=== PATIENT | female | born 1990 ===

== ENCOUNTER 2018-03-10 15:46 | Emergency (ER) | payer OTHER ==
[2018-03-10 16:20] VITALS: BMI 24.8
[2018-03-10 16:21] VITALS: BP 119/74; PULSE 87; RESP 18; TEMP 98.9; O2SAT 98
--- NOTE | 2018-03-10 17:54 | ED PDOC ---
Arrival/HPI - General Chief Complaint: Female Genitourinary Time Seen by Provider: 03/10/18 16:47 Historian: Patient - History of Present Illness Narrative History of Present Illness (Text): 03/10/18 17:52 A 28 year old female, with no significant past medical history, presents to the emergency department with complaint of intermittent pelvic pain. Patient notes that she had an IUD placed 6 months ago. She reports that for the past 2 months she has not been able to see the IUD string. [facility] and [facility] recommended she she have an outpatient US. The patient denies fevers, chills, headache, dizziness, chest pain, shortness of breath, dyspnea on exertion, cough, abdominal pain, nausea, vomiting, diarrhea, back pain, neck pain, urinary/bowel changes, or any other complaint. Time/Duration: Other (2 months) Symptom Onset: Gradual Symptom Course: Unchanged Activities at Onset: Rest, Light Context: Home Past Medical History - Provider Review Nursing Documentation Reviewed: Yes Family/Social History - Physician Review Nursing Documentation Reviewed: Yes Family/Social History: No Known Family HX Allergies/Home Meds Allergies/Adverse Reactions: Allergies No Known Allergies Allergy (Verified 03/10/18 16:20) Review of Systems - Physician Review All systems were reviewed & negative as marked: Yes - Review of Systems Constitutional: absent: Fevers Respiratory: absent: SOB, Cough Cardiovascular: absent: Chest Pain, MARIN Gastrointestinal: absent: Abdominal Pain, Stool Changes, Diarrhea, Nausea, Vomiting Genitourinary Female: Other (intermittent pelvic pain.). absent: Urine Output Changes Musculoskeletal: absent: Back Pain, Neck Pain Neurological: absent: Headache, Dizziness Physical Exam - Physical Exam Narrative Physical Exam (Text): 03/10/18 17:45: Patient currently refusing physical and pelvic exam. Vital Signs Reviewed: Yes Vital Signs Temp Pulse Resp BP Pulse Ox 03/10/18 16:20 98.9 F 87 18 119/74 98 Temperature: Afebrile Blood Pressure: Normal Pulse: Regular Respiratory Rate: Normal Appearance: Positive for: Well-Appearing, Non-Toxic, Comfortable Pain Distress: None Mental Status: Positive for: Alert and Oriented X 3 Medical Decision Making ED Course and Treatment: Impression: A 28 year old female presents to the emergency department with a complaint of intermittent pelvic pain. Plan: -- [place] [facility] [place] Progress Notes: 03/10/18 17:45: Patient refusing physical/ pelvic exam, HCG, Transvaginal Ultrasound stating she does not want to wait for results and will get tests done as an outpatient. Patient will leave against medical advice. Leaving Against Medical Advice (AMA): The patient is choosing to leave against medical advice. I have personally explained to the patient that choosing to do so may result in permanent bodily harm, diability, or . I have discussed at great length that without further evaluation and monitoring there may be unforeseen circumstances and/or deterioration causing permanent bodily harm or as a result of their choice. The patient is alert, oriented, and shows the mental capacity to make clear decisions regarding the patients health care at this time. The patient continues to wish to leave against medical advice. In light of the patients decision to leave against medical advice, follow-up h as been arranged and the patient is aware of the importance to following up as instructed. The patient has been advised that they should return to the emergency room immediately if they change their mind at any time, or if their condition begins to change or worsen in any way. - RAD Interpretation Radiology Orders: 03/10/18 17:17 TRANSVAGINAL [US] Stat - PA / UNIT MANAGER [employer] / Resident Statement MD/DO has reviewed & agrees with the documentation as recorded. - Scribe Statement The provider has reviewed the documentation as recorded by the Scribe Maria Del Rosario Fernandez Provider Scribe Attestation: All medical record entries made by the Scribe were at my direction and personally dictated by me. I have reviewed the chart and agree that the record accurately reflects my personal performance of the history, physical exam, medical decision making, and the department course for this patient. I have also personally directed, reviewed, and agree with the discharge instructions and disposition. a Disposition/Present on Arrival - Present on Arrival Any Indicators Present on Arrival: No History of DVT/PE: No History of Uncontrolled Diabetes: No Urinary Catheter: No History of Decub. Ulcer: No History Surgical Site Infection Following: None - Disposition Have Diagnosis and Disposition been Completed?: Yes Diagnosis: IUD check up Disposition: AGAINST MEDICAL ADVICE Disposition Time: 17:20 Patient Plan: Other (patient wishes to leave AMA) Condition: STABLE Discharge Instructions (ExitCare): Intrauterine Devices (IUD), Leaving Against Medical Advice Additional Instructions: Thank you for letting us take care of you today. You are choosing to leave AGAINST MEDICAL ADVICE. You were treated for IUD checkup. The emergency medical care you received today was directed at your acute symptoms. If you were prescribed any medication, please fill it and take as directed. It may take s everal days for your symptoms to resolve. Return to the Emergency Department if your symptoms worsen, do not improve, or if you have any other problems. Please contact your doctor in 2 days for re-evaluation and follow up / or call one of the physicians/clinics you have been referred to that are listed on the Patient Visit Information form that is included in your discharge packet. Bring any paperwork you were given at discharge with you along with any medications you are taking to your follow up visit. Our treatment cannot replace ongoing medical care by a primary care provider (PCP) outside of the emergency department. Thank you for allowing the [facility] team to be part of your care today. Referrals: [facility] [Outside] - Follow up with primary Guillermina Ireland MD [Staff Provider] - Follow up with primary Forms: [employer] (Chinese)
== END 2018-03-10 17:45 | disposition left against medical advice (07) ==
LOC: ED 15:46
DX: Z30.431 Encounter for routine checking of intrauterine contraceptive device (principal)